=== PATIENT | male | born 1955 | race Caucasian/White ===

== ENCOUNTER 2022-03-21 10:58 | Emergency (ER) | payer MEDICARE, BC ==
[2022-03-21 11:24] VITALS: BP 143/70; PULSE 97
== END 2022-03-21 13:20 | disposition home or self-care (01) ==
LOC: JP.ED 10:58
DX: J40 Bronchitis, not specified as acute or chronic (principal); I12.0 Hypertensive chronic kidney disease with stage 5 chronic kidney disease or end stage renal disease; E11.22 Type 2 diabetes mellitus with diabetic chronic kidney disease; N18.6 End stage renal disease; F17.210 Nicotine dependence, cigarettes, uncomplicated; Z88.8 Allergy status to other drugs, medicaments and biological substances; Z79.899 Other long term (current) drug therapy; Z79.82 Long term (current) use of aspirin; Z79.4 Long term (current) use of insulin
CPT/HCPCS: 36415; 71046; 71046-26; 80048; 85025; 99283

== ENCOUNTER 2022-04-19 12:49 | Emergency (ER) | payer MEDICARE, BC ==
[2022-04-19 15:53] VITALS: BP 162/74; PULSE 70
== END 2022-04-19 16:48 | disposition other institution (70) ==
LOC: JP.ED 12:49
DX: I13.11 Hypertensive heart and chronic kidney disease without heart failure, with stage 5 chronic kidney disease, or end stage renal disease (principal); E11.22 Type 2 diabetes mellitus with diabetic chronic kidney disease; N18.6 End stage renal disease; D63.1 Anemia in chronic kidney disease; Z99.2 Dependence on renal dialysis; Z87.891 Personal history of nicotine dependence; Z79.4 Long term (current) use of insulin; Z79.899 Other long term (current) drug therapy
CPT/HCPCS: 36415; 80048; 85025; 99284

== ENCOUNTER → 2022-05-21 | Day surgery (SDC) | payer MEDICARE, BC ==
[~2022-05-21] MED LIST: Lactated Ringers 1,000 ML IV SCH; Midazolam 1 MG/ML 2 ML SDV ONE; Propofol 200 MG/20 ML SDV ONE; fentaNYL 100 MCG/2 ML SDV ONE
== END ==
LOC: JP.SDS 06:00
PROVIDERS: ATTEND Family Medicine
DX: K29.71 Gastritis, unspecified, with bleeding (principal); D50.9 Iron deficiency anemia, unspecified; E11.22 Type 2 diabetes mellitus with diabetic chronic kidney disease; N18.30 Chronic kidney disease, stage 3 unspecified; E78.5 Hyperlipidemia, unspecified; Z88.8 Allergy status to other drugs, medicaments and biological substances; Z79.02 Long term (current) use of antithrombotics/antiplatelets
CPT/HCPCS: 43235; J2250; J2704; J3010; J7120

== ENCOUNTER 2022-05-27 10:50 | Emergency (ER) | payer MEDICARE, BC ==
[2022-05-27] MEDS ORDERED: Furosemide 100 MG/10 ML SDV ONE (18:00)
[2022-06-21 12:32] LABS: ESTIMATED GFR 4 mL/min (>60)
== END 2022-05-27 19:59 | disposition home or self-care (01) ==
LOC: JP.ED 10:50
DX: N18.9 Chronic kidney disease, unspecified (principal); D63.1 Anemia in chronic kidney disease
CPT/HCPCS: 36415; 71046; 80048; 81001; 82140; 82270; 83540; 83550; 83605; 84145; 85025; 96365; 99285; J1940; 82947

== ENCOUNTER 2022-08-01 08:00 | Day surgery (SDC) | payer MEDICARE, BC ==
[2022-08-01] MEDS ORDERED: Midazolam 1 MG/ML 2 ML SDV ONE (08:32)
[2022-08-01] MEDS ORDERED: Propofol 200 MG/20 ML SDV ONE (08:32)
[2022-08-01] MEDS ORDERED: fentaNYL 50 MCG/ML SDV ONE (08:32)
[2022-08-01] MEDS ORDERED: Sodium Chloride 0.9% 1,000 ML IV SCH (09:00)
[2022-08-01 10:53] VITALS: BP 123/58; PULSE 70
== END 2022-08-01 11:24 | disposition home or self-care (01) ==
LOC: JP.SDS 08:00
PROVIDERS: ATTEND Surgery
DX: K29.80 Duodenitis without bleeding (principal); D12.5 Benign neoplasm of sigmoid colon; D12.4 Benign neoplasm of descending colon; D63.1 Anemia in chronic kidney disease; E11.22 Type 2 diabetes mellitus with diabetic chronic kidney disease; N18.5 Chronic kidney disease, stage 5; E78.5 Hyperlipidemia, unspecified; I48.91 Unspecified atrial fibrillation; Z88.8 Allergy status to other drugs, medicaments and biological substances; Z79.899 Other long term (current) drug therapy
CPT/HCPCS: 43239; 45385; J2250; J2704; J3010

== ENCOUNTER 2023-02-20 06:24 | Day surgery (SDC) | payer MEDICARE, BC ==
[2023-02-20] MEDS ORDERED: Sodium Chloride 0.9% 1,000 ML IV SCH (07:00)
[2023-02-20] MEDS ORDERED: fentaNYL 100 MCG/2 ML SDV ONE (07:26)
[2023-02-20] MEDS ORDERED: Propofol 200 MG/20 ML SDV ONE (07:26)
[2023-02-20 07:56] LABS: CALCIUM 8.7 mg/dL (8.5-10.1); EST CRCL DRUG DOSING (CG) 5.48 mL/min; POTASSIUM,K 4.1 mmol/L (3.6-5.2)
[2023-02-20 07:57] LABS: ANION GAP 16.1 mmol/L (5.0-14.0); CREATININE 11.9 mg/dL (0.8-1.3)
[2023-02-20 10:25] VITALS: BP 134/68; PULSE 63
== END 2023-02-20 10:30 | disposition home or self-care (01) ==
LOC: JP.SDS 06:24
PROVIDERS: ATTEND Surgery
DX: Z12.11 Encounter for screening for malignant neoplasm of colon (principal); E11.22 Type 2 diabetes mellitus with diabetic chronic kidney disease; N18.30 Chronic kidney disease, stage 3 unspecified; I48.91 Unspecified atrial fibrillation; Z86.010 Personal history of colon polyps; Z79.899 Other long term (current) drug therapy; Z88.8 Allergy status to other drugs, medicaments and biological substances
CPT/HCPCS: 36415; 80048; J2704; J3010; J7030

== ENCOUNTER 2023-04-15 13:41 | Emergency (ER) | payer MEDICARE, BC ==
[2023-04-15] MEDS ORDERED: Sodium Chloride 0.9% 10 ML Syringe FLUSH PRN (14:09)
[2023-04-15] MEDS ORDERED: Piperacillin/Tazobactam 2.25 GM in Sodium Chloride 0.9% 50 ML IV ONE (14:16)
[2023-04-15 14:37] LABS: HEMATOCRIT 26.1 % (38.4-49.7); HEMOGLOBIN 8.2 g/dL (12.9-16.9); MEAN CORPUSCULAR HEMOGLOBIN 30.8 pg (31.6-35.5); MEAN CORPUSCULAR HGB CONC 31.4 g/dL (31.6-35.5); MEAN CORPUSCULAR VOLUME 98.1 fL (81.4-99.0); PLATELET COUNT,PLT 139 K/uL (130-375); RED BLOOD CELL COUNT 2.66 M/uL (4.14-5.76); WHITE BLOOD CELL COUNT,WBC 11.9 K/uL (3.2-11.0)
[2023-04-15] MEDS ORDERED: Iopamidol 612 MG/ML 100 ML Bottle IV SCH (14:45)
[2023-04-15] MEDS ORDERED: Sodium Chloride 0.9% 50 ML IV SCH (14:45)
[2023-04-15 14:49] LABS: INR 1.3; PROTHROMBIN TIME 12.9 sec (9.2-10.6)
[2023-04-15 14:50] LABS: BAND PERCENT MAN 5 % (5-11); LYMPHOCYTES ABSOLUTE MAN 0.24 K/uL (0.8-3.3); LYMPHOCYTES PERCENT MAN 2 % (24-44); MONOCYTES ABSOLUTE MAN 0.71 K/uL (0.20-0.90); MONOCYTES PERCENT MAN 6 % (2-6); NEUTROPHILS ABSOLUTE MAN 10.35 K/uL (1.0-7.6); SEG NEUTROPHILS PERCENT MAN 87 % (36-66)
[2023-04-15 14:53] LABS: A/G RATIO 0.9 (1.2-2.2); ALANINE AMINOTRANSFERASE,ALT 18 U/L (12-78); ALBUMIN 2.6 g/dL (3.4-5.0); ALKALINE PHOSPHATASE 53 U/L (46-116); ASPARTATE AMNIOTRANSFERASE,AST 14 U/L (15-37); BILIRUBIN TOTAL 0.7 mg/dL (0.2-1.0); BLOOD UREA NITROGEN,BUN 29 mg/dL (7-18); CALCIUM 7.5 mg/dL (8.5-10.1); CARBON DIOXIDE,CO2 27 mmol/L (21-32); CHLORIDE,CL 101 mmol/L (100-108); EST CRCL DRUG DOSING (CG) 9.18 mL/min; ESTIMATED GFR 8 mL/min (>60); GLUCOSE RANDOM 154 mg/dL (74-106); POTASSIUM,K 5.4 mmol/L (3.6-5.2); PROTEIN TOTAL,TP 5.6 g/dL (6.4-8.2); SODIUM,NA 138 mmol/L (140-148)
[2023-04-15 14:54] LABS: ANION GAP 15.4 mmol/L (5.0-14.0); CREATININE 7.1 mg/dL (0.8-1.3)
[2023-04-15 14:56] LABS: LACTIC ACID 3.3 mmol/L (0.4-2.0)
[2023-04-15] MEDS ORDERED: Midazolam 1 MG/ML 2 ML SDV IVPUSH ONE (15:50)
[2023-04-15 18:09] VITALS: PULSE 89
[2023-04-15 19:06] VITALS: BP 101/41
== END 2023-04-15 19:46 ==
LOC: JP.ED 13:41
DX: A41.9 Sepsis, unspecified organism (principal); K65.9 Peritonitis, unspecified; I48.91 Unspecified atrial fibrillation; E78.00 Pure hypercholesterolemia, unspecified; I10 Essential (primary) hypertension; K21.9 Gastro-esophageal reflux disease without esophagitis; E11.9 Type 2 diabetes mellitus without complications; Z99.2 Dependence on renal dialysis; Z86.16 Personal history of COVID-19; Z79.4 Long term (current) use of insulin; Z79.02 Long term (current) use of antithrombotics/antiplatelets; Z79.899 Other long term (current) drug therapy; Z88.8 Allergy status to other drugs, medicaments and biological substances
CPT/HCPCS: 36415; 71260; 74177; 80053; 83605; 83690; 84145; 85025; 85610; 86140; 87040; 96365; 96367; 96375; 99285; J2250; J2543; J3370; J3490; J7050; Q9967; 87077; 87186

== ENCOUNTER 2023-04-26 21:57 | Emergency (ER) | payer MEDICARE, BC ==
[2023-04-26 22:22] VITALS: BP 132/54; PULSE 86
== END 2023-04-26 22:59 | disposition home or self-care (01) ==
LOC: JP.ED 21:57
DX: I82.611 Acute embolism and thrombosis of superficial veins of right upper extremity (principal); I48.91 Unspecified atrial fibrillation; E78.00 Pure hypercholesterolemia, unspecified; I10 Essential (primary) hypertension; K21.9 Gastro-esophageal reflux disease without esophagitis; E11.9 Type 2 diabetes mellitus without complications; Z88.8 Allergy status to other drugs, medicaments and biological substances; Z79.4 Long term (current) use of insulin; Z79.899 Other long term (current) drug therapy; Z86.16 Personal history of COVID-19; Z95.5 Presence of coronary angioplasty implant and graft
CPT/HCPCS: 99284

== ENCOUNTER 2023-05-04 03:21 | Emergency (ER) | payer MEDICARE, BC ==
[2023-05-04 03:56] VITALS: BP 139/56; PULSE 71
== END 2023-05-04 06:34 | disposition home or self-care (01) ==
LOC: JP.ED 03:21
DX: K59.01 Slow transit constipation (principal); I10 Essential (primary) hypertension; E78.00 Pure hypercholesterolemia, unspecified; K21.9 Gastro-esophageal reflux disease without esophagitis; E11.9 Type 2 diabetes mellitus without complications; I48.91 Unspecified atrial fibrillation; Z88.8 Allergy status to other drugs, medicaments and biological substances; Z79.02 Long term (current) use of antithrombotics/antiplatelets; Z79.4 Long term (current) use of insulin
CPT/HCPCS: 74019; 74019-26; 99283

== ENCOUNTER 2023-05-07 00:36 | Emergency (ER) | payer MEDICARE, BC ==
[2023-05-07 01:01] VITALS: BP 172/68; PULSE 85
== END 2023-05-07 03:20 | disposition home or self-care (01) ==
LOC: JP.ED 00:36
DX: K59.01 Slow transit constipation (principal); I10 Essential (primary) hypertension; I48.91 Unspecified atrial fibrillation; E78.00 Pure hypercholesterolemia, unspecified; K21.9 Gastro-esophageal reflux disease without esophagitis; E11.9 Type 2 diabetes mellitus without complications; Z86.16 Personal history of COVID-19; Z87.891 Personal history of nicotine dependence; Z79.4 Long term (current) use of insulin; Z88.8 Allergy status to other drugs, medicaments and biological substances
CPT/HCPCS: 74018; 74018-26; 99283

== ENCOUNTER 2024-07-05 04:50 | Emergency (ER) | payer MEDICARE, BC ==
[2024-07-05 05:15] LABS: BASOPHILS ABSOLUTE AUTO 0.04 K/uL (0.00-0.10); BASOPHILS PERCENT AUTO 0.6 % (0.1-1.3); EOSINOPHILS ABSOLUTE AUTO 0.19 K/uL (0.00-0.40); HEMATOCRIT 31.2 % (38.4-49.7); HEMOGLOBIN 10.2 g/dL (12.9-16.9); IMMATURE GRAN PERCENT AUTO 0.3 % (0.0-0.7); LYMPHOCYTES ABSOLUTE AUTO 0.81 K/uL (0.8-3.3); LYMPHOCYTES PERCENT AUTO 12.7 % (11.4-47.7); MEAN CORPUSCULAR HEMOGLOBIN 30.5 pg (31.6-35.5); MEAN CORPUSCULAR HGB CONC 32.7 g/dL (31.6-35.5); MEAN CORPUSCULAR VOLUME 93.4 fL (81.4-99.0); MONOCYTES ABSOLUTE AUTO 0.71 K/uL (0.20-0.90); MONOCYTES PERCENT AUTO 11.1 % (3.3-12.6); NEUTROPHILS ABSOLUTE AUTO 4.61 K/uL (1.0-7.6); NEUTROPHILS PERCENT AUTO 72.3 % (40.0-78.1); PLATELET COUNT,PLT 192 K/uL (130-375); RED BLOOD CELL COUNT 3.34 M/uL (4.14-5.76); WHITE BLOOD CELL COUNT,WBC 6.4 K/uL (3.2-11.0)
[2024-07-05 05:32] LABS: BASE EXCESS ARTERIAL 2.2 mm/L; BICARBONATE,ARTERIAL 25.3 mmol/L (22.0-26.0); CARBOXYHEMOGLOBIN 3.1 % (0.0-1.6); METHEMOGLOBIN 0.8 %; O2 SATURATION ARTERIAL 95.8 % (95.0-98.0); OXYHEMOGLOBIN 92.1 %; PCO2 ARTERIAL 35.5 mmHg (35.0-42.0); PO2 ARTERIAL 98.4 mmHg (75.0-100.0); TOTAL HEMOGLOBIN 10.6 g/dL (13.5-18.0)
[2024-07-05 05:33] LABS: IMMATURE GRAN ABSOLUTE AUTO 0.02 K/uL (0.00-0.23)
[2024-07-05 05:52] LABS: ALANINE AMINOTRANSFERASE,ALT 22 U/L (12-78); ALBUMIN 3.5 g/dL (3.4-5.0); ALKALINE PHOSPHATASE 72 U/L (46-116); ASPARTATE AMNIOTRANSFERASE,AST 16 U/L (15-37); BILIRUBIN TOTAL 0.5 mg/dL (0.2-1.0); BLOOD UREA NITROGEN,BUN 54 mg/dL (7-18); CALCIUM 9.2 mg/dL (8.5-10.1); CARBON DIOXIDE,CO2 28 mmol/L (21-32); CHLORIDE,CL 102 mmol/L (100-108); EST CRCL DRUG DOSING (CG) 5.79 mL/min; ESTIMATED GFR 5 mL/min (>60); GLUCOSE RANDOM 153 mg/dL (74-106); POTASSIUM,K 5.3 mmol/L (3.6-5.2); PRO B-TYPE NATRIUR PEPT,BNPPRO 34819 pg/mL (5-125); PROTEIN TOTAL,TP 6.9 g/dL (6.4-8.2); SODIUM,NA 141 mmol/L (140-148)
[2024-07-05 05:53] LABS: ANION GAP 16.3 mmol/L (5.0-14.0)
[2024-07-05 05:54] LABS: CREATININE 11.1 mg/dL (0.8-1.3); TROPONIN I HIGH SENSITIVITY 224.8 pg/mL (<=60.3)
[2024-07-05 06:13] LABS: CORONAVIRUS COVID-19 NAA NEGATIVE (NEGATIVE); INFLUENZA A NAA NEGATIVE (NEGATIVE); INFLUENZA B NAA NEGATIVE (NEGATIVE); RESPIRATORY SYNCYTIAL VIR NAA NEGATIVE (NEGATIVE)
[2024-07-05] MEDS ORDERED: Lidocaine 1% 2 ML ONE (06:15)
[2024-07-05] MEDS: Sodium Chloride 0.9% 10 ML Syringe FLUSH PRN (06:32)
[2024-07-05] MEDS: Nitroglycerin 0.4 MG Tab.SL SL ONE (06:33)
[2024-07-05] MEDS: Furosemide 40 MG/4 ML VIAL IVPUSH ONE (07:41)
[2024-07-05] MEDS: Aspirin 81 MG Tab.Chew PO ONE (07:41)
[2024-07-05] MEDS ORDERED: Heparin Sodium/D5W 25,000 UNITS/500 ML BAG IV SCH (08:15)
[2024-07-05] MEDS: Heparin Sodium 5,000 Units/ML Vial ONE (08:39)
[2024-07-05] MEDS: Heparin Sodium/D5W 25,000 UNITS/500 ML BAG IV SCH (08:39)
[2024-07-05] MEDS: Heparin Sodium 5,000 Units/ML Vial IVPUSH ONE (08:39)
[2024-07-05 10:03] VITALS: BP 174/86; PULSE 82
== END 2024-07-05 10:26 ==
LOC: JP.ED 04:50
DX: I13.0 Hypertensive heart and chronic kidney disease with heart failure and stage 1 through stage 4 chronic kidney disease, or unspecified chronic kidney disease (principal); I50.9 Heart failure, unspecified; N18.6 End stage renal disease; E78.00 Pure hypercholesterolemia, unspecified; E11.22 Type 2 diabetes mellitus with diabetic chronic kidney disease; Z86.16 Personal history of COVID-19; Z87.891 Personal history of nicotine dependence; Z79.899 Other long term (current) drug therapy; Z79.4 Long term (current) use of insulin; Z88.8 Allergy status to other drugs, medicaments and biological substances
CPT/HCPCS: 0241U; 36415; 36600; 71045; 80053; 82803; 83605; 83735; 83880; 84484; 85025; 87040; 93005; 96365; 96375; 99285; A9270; J1644; J1940; J3490; 36410; 93010

== ENCOUNTER 2024-09-06 01:34 | Emergency (ER) | payer MEDICARE, BC ==
[2024-09-06 02:07] LABS: BASOPHILS ABSOLUTE AUTO 0.03 K/uL (0.00-0.10); BASOPHILS PERCENT AUTO 0.4 % (0.1-1.3); EOSINOPHILS ABSOLUTE AUTO 0.15 K/uL (0.00-0.40); HEMATOCRIT 31.1 % (38.4-49.7); HEMOGLOBIN 10.5 g/dL (12.9-16.9); IMMATURE GRAN PERCENT AUTO 0.1 % (0.0-0.7); LYMPHOCYTES ABSOLUTE AUTO 0.63 K/uL (0.8-3.3); LYMPHOCYTES PERCENT AUTO 8.3 % (11.4-47.7); MEAN CORPUSCULAR HEMOGLOBIN 31.3 pg (31.6-35.5); MEAN CORPUSCULAR HGB CONC 33.8 g/dL (31.6-35.5); MEAN CORPUSCULAR VOLUME 92.8 fL (81.4-99.0); MONOCYTES ABSOLUTE AUTO 0.78 K/uL (0.20-0.90); MONOCYTES PERCENT AUTO 10.2 % (3.3-12.6); NEUTROPHILS ABSOLUTE AUTO 6.02 K/uL (1.0-7.6); PLATELET COUNT,PLT 149 K/uL (130-375); RED BLOOD CELL COUNT 3.35 M/uL (4.14-5.76); WHITE BLOOD CELL COUNT,WBC 7.6 K/uL (3.2-11.0)
[2024-09-06] MEDS: Albuterol 0.083% 2.5 MG/3 ML Neb Soln NEB ONE (02:16)
[2024-09-06 02:24] LABS: IMMATURE GRAN ABSOLUTE AUTO 0.01 K/uL (0.00-0.23)
[2024-09-06 02:30] LABS: A/G RATIO 1.1 (1.2-2.2); ALANINE AMINOTRANSFERASE,ALT 25 U/L (12-78); ALBUMIN 3.8 g/dL (3.4-5.0); ALKALINE PHOSPHATASE 87 U/L (46-116); ASPARTATE AMNIOTRANSFERASE,AST 21 U/L (15-37); BILIRUBIN TOTAL 0.6 mg/dL (0.2-1.0); BLOOD UREA NITROGEN,BUN 53 mg/dL (7-18); CALCIUM 8.8 mg/dL (8.5-10.1); CARBON DIOXIDE,CO2 33 mmol/L (21-32); CHLORIDE,CL 97 mmol/L (100-108); EST CRCL DRUG DOSING (CG) 5.71 mL/min; ESTIMATED GFR 4 mL/min (>60); GLUCOSE RANDOM 138 mg/dL (74-106); POTASSIUM,K 4.6 mmol/L (3.6-5.2); PROTEIN TOTAL,TP 7.3 g/dL (6.4-8.2); SODIUM,NA 141 mmol/L (140-148)
[2024-09-06 02:31] LABS: ANION GAP 15.6 mmol/L (5.0-14.0)
[2024-09-06 02:32] LABS: CREATININE 11.1 mg/dL (0.8-1.3)
[2024-09-06 03:01] LABS: PRO B-TYPE NATRIUR PEPT,BNPPRO 55890 pg/mL (5-125)
[2024-09-06] MEDS ORDERED: Sodium Chloride 0.9% 10 ML Syringe FLUSH PRN (03:10)
[2024-09-06] MEDS: Bumetanide 2.5 MG/10 ML MDV IVPUSH ONE (04:08)
[2024-09-06 08:57] LABS: APPEARANCE,URINE CLEAR (CLEAR); BILIRUBIN,URINE NEGATIVE (NEGATIVE); COLOR,URINE YELLOW (YELLOW); GLUCOSE,URINE 100 mg/dL (NEGATIVE); KETONES,URINE NEGATIVE (NEGATIVE); LEUKOCYTE ESTERASE,URINE NEGATIVE (NEGATIVE); NITRITE,URINE NEGATIVE (NEGATIVE); OCCULT BLOOD,URINE TRACE-INTACT (NEGATIVE); PH,URINE 8.5 (5.0-8.0); PROTEIN,URINE >=300 mg/dL (NEGATIVE); UROBILINOGEN,URINE 0.2 EU/dL (0.2-1.0)
[2024-09-06 09:05] LABS: AMORPHOUS SEDIMENT,URINE NOT SEEN; BACTERIA,URINE RARE; EPITHELIAL CELLS,URINE NOT SEEN; MUCUS,URINE NOT SEEN; RBC,URINE 0-5 (0-5); WBC,URINE 0-5 (0-5)
[2024-09-06] MEDS: Metoprolol Succinate 50 MG Tab.ER PO ONE (10:50)
[2024-09-06] MEDS: Isosorbide Mononitrate 30 MG Tab.ER PO ONE (10:51)
[2024-09-06 11:36] VITALS: BP 178/87; PULSE 82
== END 2024-09-06 12:30 ==
LOC: JP.ED 01:34
DX: I13.2 Hypertensive heart and chronic kidney disease with heart failure and with stage 5 chronic kidney disease, or end stage renal disease (principal); I50.9 Heart failure, unspecified; N18.5 Chronic kidney disease, stage 5; E78.00 Pure hypercholesterolemia, unspecified; I48.91 Unspecified atrial fibrillation; E11.22 Type 2 diabetes mellitus with diabetic chronic kidney disease; Z88.8 Allergy status to other drugs, medicaments and biological substances; Z79.02 Long term (current) use of antithrombotics/antiplatelets; Z86.16 Personal history of COVID-19; Z95.5 Presence of coronary angioplasty implant and graft; Z79.899 Other long term (current) drug therapy
CPT/HCPCS: 36415; 71045; 80053; 81001; 83880; 85025; 94640; 96374; 99285; A9270; J1939

== ENCOUNTER 2024-12-15 19:17 | Emergency (ER) | payer MEDICARE, BC ==
[2024-12-15 21:17] VITALS: BP 145/64; PULSE 75
== END 2024-12-15 21:10 | disposition home or self-care (01) ==
LOC: JP.ED 19:17
DX: J40 Bronchitis, not specified as acute or chronic (principal); R41.0 Disorientation, unspecified; R53.83 Other fatigue; I13.0 Hypertensive heart and chronic kidney disease with heart failure and stage 1 through stage 4 chronic kidney disease, or unspecified chronic kidney disease; I50.9 Heart failure, unspecified; I48.91 Unspecified atrial fibrillation; E78.00 Pure hypercholesterolemia, unspecified; E11.22 Type 2 diabetes mellitus with diabetic chronic kidney disease; F17.200 Nicotine dependence, unspecified, uncomplicated; N18.9 Chronic kidney disease, unspecified; Z88.8 Allergy status to other drugs, medicaments and biological substances; Z79.899 Other long term (current) drug therapy; Z79.4 Long term (current) use of insulin; Z79.02 Long term (current) use of antithrombotics/antiplatelets; Z79.51 Long term (current) use of inhaled steroids; Z86.16 Personal history of COVID-19
CPT/HCPCS: 70450; 99285

== ENCOUNTER 2025-04-30 11:45 | Emergency (ER) | payer MEDICARE, BC ==
[2025-04-30 14:20] LABS: BASE EXCESS VENOUS 6.6 mm/L; BICARBONATE,VENOUS 31.3 mmol/L; O2 SATURATION VENOUS 49.5; OXYHEMOGLOBIN 47.0 %; PCO2 VENOUS 46.7 mm/Hg; PH,VENOUS 7.441 (7.350-7.450); TOTAL HEMOGLOBIN 11.3 g/dL (13.5-18.0)
[2025-04-30 14:22] LABS: BASOPHILS ABSOLUTE AUTO 0.04 K/uL (0.00-0.10); BASOPHILS PERCENT AUTO 0.5 % (0.1-1.3); EOSINOPHILS ABSOLUTE AUTO 0.09 K/uL (0.00-0.40); EOSINOPHILS PERCENT AUTO 1.1 % (0.0-5.4); IMMATURE GRAN ABSOLUTE AUTO 0.03 K/uL (0.00-0.23); IMMATURE GRAN PERCENT AUTO 0.4 % (0.0-0.7); LYMPHOCYTES ABSOLUTE AUTO 0.48 K/uL (0.8-3.3); LYMPHOCYTES PERCENT AUTO 6.0 % (11.4-47.7); MONOCYTES ABSOLUTE AUTO 0.89 K/uL (0.20-0.90); MONOCYTES PERCENT AUTO 11.1 % (3.3-12.6); NEUTROPHILS ABSOLUTE AUTO 6.51 K/uL (1.0-7.6); NEUTROPHILS PERCENT AUTO 80.9 % (40.0-78.1); PLATELET COUNT,PLT 163 K/uL (130-375); RED BLOOD CELL COUNT 3.48 M/uL (4.14-5.76); WHITE BLOOD CELL COUNT,WBC 8.0 K/uL (3.2-11.0)
[2025-04-30 14:32] LABS: PO2 VENOUS 28.8 mm/Hg
[2025-04-30 14:43] LABS: ALANINE AMINOTRANSFERASE,ALT 33 U/L (12-78); ASPARTATE AMNIOTRANSFERASE,AST 27 U/L (15-37); BILIRUBIN TOTAL 0.8 mg/dL (0.2-1.0); BLOOD UREA NITROGEN,BUN 48 mg/dL (7-18); CARBON DIOXIDE,CO2 33 mmol/L (21-32); CHLORIDE,CL 97 mmol/L (100-108); EST CRCL DRUG DOSING (CG) 7.12 mL/min; ESTIMATED GFR 6 mL/min (>60); GLUCOSE RANDOM 247 mg/dL (74-106); POTASSIUM,K 5.5 mmol/L (3.6-5.2); PROTEIN TOTAL,TP 7.4 g/dL (6.4-8.2); SODIUM,NA 137 mmol/L (140-148)
[2025-04-30 14:47] LABS: A/G RATIO 1.0 (1.2-2.2); CREATININE 8.9 mg/dL (0.8-1.3)
[2025-04-30 17:07] VITALS: BP 132/65; PULSE 73
== END 2025-04-30 17:13 | disposition home or self-care (01) ==
LOC: JP.ED 11:45
DX: L03.115 Cellulitis of right lower limb (principal); I13.0 Hypertensive heart and chronic kidney disease with heart failure and stage 1 through stage 4 chronic kidney disease, or unspecified chronic kidney disease; I50.9 Heart failure, unspecified; I48.91 Unspecified atrial fibrillation; E11.9 Type 2 diabetes mellitus without complications; N18.9 Chronic kidney disease, unspecified; Z79.899 Other long term (current) drug therapy; Z79.1 Long term (current) use of non-steroidal anti-inflammatories (NSAID); Z88.8 Allergy status to other drugs, medicaments and biological substances; Z86.16 Personal history of COVID-19
CPT/HCPCS: 36415; 71045; 71045-26; 80053; 82803; 83605; 85025; 85379; 87428-QW; 93971-RT; 99284

== ENCOUNTER 2025-05-06 02:57 | Emergency (ER) | payer MEDICARE, BC ==
[2025-05-06 03:19] LABS: BASOPHILS PERCENT AUTO 0.2 % (0.1-1.3); EOSINOPHILS ABSOLUTE AUTO 0.06 K/uL (0.00-0.40); EOSINOPHILS PERCENT AUTO 1.1 % (0.0-5.4); IMMATURE GRAN PERCENT AUTO 0.4 % (0.0-0.7); LYMPHOCYTES ABSOLUTE AUTO 0.05 K/uL (0.8-3.3); LYMPHOCYTES PERCENT AUTO 0.9 % (11.4-47.7); MONOCYTES ABSOLUTE AUTO 0.38 K/uL (0.20-0.90); MONOCYTES PERCENT AUTO 7.1 % (3.3-12.6); NEUTROPHILS ABSOLUTE AUTO 4.87 K/uL (1.0-7.6); NEUTROPHILS PERCENT AUTO 90.3 % (40.0-78.1); PLATELET COUNT,PLT 203 K/uL (130-375); RED BLOOD CELL COUNT 3.47 M/uL (4.14-5.76); WHITE BLOOD CELL COUNT,WBC 5.4 K/uL (3.2-11.0)
[2025-05-06 03:40] LABS: BASE EXCESS ARTERIAL 0.7 mm/L; BICARBONATE,ARTERIAL 26.2 mmol/L (22.0-26.0); O2 SATURATION ARTERIAL 81.5 % (95.0-98.0); OXYHEMOGLOBIN 77.8 %; PCO2 ARTERIAL 49.2 mmHg (35.0-42.0); PO2 ARTERIAL 53.4 mmHg (75.0-100.0); TOTAL HEMOGLOBIN 10.5 g/dL (13.5-18.0)
[2025-05-06 03:43] LABS: BASOPHILS ABSOLUTE AUTO 0.01 K/uL (0.00-0.10); IMMATURE GRAN ABSOLUTE AUTO 0.02 K/uL (0.00-0.23)
[2025-05-06 03:47] LABS: BLOOD UREA NITROGEN,BUN 61 mg/dL (7-18); CARBON DIOXIDE,CO2 30 mmol/L (21-32); CHLORIDE,CL 99 mmol/L (100-108); ESTIMATED GFR 5 mL/min (>60); GLUCOSE RANDOM 263 mg/dL (74-106); POTASSIUM,K 4.8 mmol/L (3.6-5.2); PROTEIN TOTAL,TP 6.9 g/dL (6.4-8.2); SODIUM,NA 143 mmol/L (140-148)
[2025-05-06 03:48] LABS: A/G RATIO 0.9 (1.2-2.2); ALANINE AMINOTRANSFERASE,ALT 35 U/L (12-78); ASPARTATE AMNIOTRANSFERASE,AST 31 U/L (15-37); BILIRUBIN TOTAL 0.7 mg/dL (0.2-1.0)
[2025-05-06 03:51] LABS: CREATININE 9.8 mg/dL (0.8-1.3)
[2025-05-06 04:46] LABS: CORONAVIRUS COVID-19 NAA NEGATIVE (NEGATIVE); INFLUENZA A NAA NEGATIVE (NEGATIVE); INFLUENZA B NAA NEGATIVE (NEGATIVE); RESPIRATORY SYNCYTIAL VIR NAA NEGATIVE (NEGATIVE)
[2025-05-06 04:57] LABS: APPEARANCE,URINE CLEAR (CLEAR); GLUCOSE,URINE 100 mg/dL (NEGATIVE); OCCULT BLOOD,URINE TRACE-INTACT (NEGATIVE)
[2025-05-06] MEDS: Norepinephrine Bit/D5W Premix 4 MG in Premix Bag 1 BAG IV SCH (05:17)
[2025-05-06 05:22] LABS: SQUAMOUS EPITHELIAL CELLS,UR RARE /HPF; UROTHELIAL CELLS,URINE NOT SEEN /HPF
[2025-05-06 07:11] VITALS: BP 85/34; PULSE 83
== END 2025-05-06 07:00 ==
LOC: JP.ED 02:57
DX: A41.9 Sepsis, unspecified organism (principal); R41.0 Disorientation, unspecified; I13.2 Hypertensive heart and chronic kidney disease with heart failure and with stage 5 chronic kidney disease, or end stage renal disease; I50.9 Heart failure, unspecified; N18.6 End stage renal disease; E78.00 Pure hypercholesterolemia, unspecified; E11.22 Type 2 diabetes mellitus with diabetic chronic kidney disease; Z86.16 Personal history of COVID-19; Z95.5 Presence of coronary angioplasty implant and graft; Z88.8 Allergy status to other drugs, medicaments and biological substances; Z79.4 Long term (current) use of insulin; Z79.82 Long term (current) use of aspirin; Z79.899 Other long term (current) drug therapy
CPT/HCPCS: 36415; 36600; 71045; 71045-26; 80053; 81001; 82803; 83605; 83880; 85025; 87040; 87637; 96361; 96365; 96366; 96367; 99285; 99285-25; A9270-GY; C1758; J2543; J7030